=== PATIENT | female | born 1995 | race Caucasian/White ===

== ENCOUNTER → 2016-12-01 | Outpatient (CLI) | payer OTHER ==
[2016-12-01 13:49] LABS: ALBUMIN 3.8 GM/DL (3.2-5.2); ALBUMIN/GLOBULIN RATIO 1.09 (1.00-1.93); ALKALINE PHOSPHATASE 64 U/L (45-117); ALT/SGPT 19 U/L (12-78); ANION GAP 10 MEQ/L (8-16); AST/SGOT 10 U/L (15-37); BILIRUBIN,TOTAL 0.3 MG/DL (0.2-1.0); BLOOD UREA NITROGEN 13 MG/DL (7-18); CALCIUM LEVEL 9.4 MG/DL (8.5-10.1); CARBON DIOXIDE LEVEL 24 MEQ/L (21-32); CHLORIDE LEVEL 106 MEQ/L (98-107); CREATININE FOR GFR 0.69 MG/DL (0.55-1.02); GLOMERULAR FILTRATION RATE > 60.0 (>60); GLUCOSE, FASTING 94 MG/DL (70-105); POTASSIUM SERUM 4.6 MEQ/L (3.5-5.1); SODIUM LEVEL 140 MEQ/L (136-145); TOTAL PROTEIN 7.3 GM/DL (6.4-8.2)
== END ==
LOC: M WUC 10:58
PROVIDERS: ATTEND Nurse Practitioner Women's Health
DX: N92.1 Excessive and frequent menstruation with irregular cycle (principal); E66.8 Other obesity; Z68.38 Body mass index [BMI] 38.0-38.9, adult

== ENCOUNTER → 2017-06-17 | Outpatient (REF) | payer OTHER | LOC: M LAB REF 16:05 | PROVIDERS: ATTEND Physician Assistant | DX: R30.0 Dysuria (principal) ==

== ENCOUNTER → 2018-06-28 | Outpatient (CLI) | payer OTHER ==
[2018-06-28 10:23] LABS: ESTIMATED AVERAGE GLUCOSE 100 MG/DL (60-110); HEMOGLOBIN A1c 5.1 %
[2018-06-28 10:40] LABS: ALBUMIN 3.7 GM/DL (3.2-5.2); ALBUMIN/GLOBULIN RATIO 0.95 (1.00-1.93); ALKALINE PHOSPHATASE 73 U/L (45-117); ALT/SGPT 28 U/L (12-78); ANION GAP 8 MEQ/L (8-16); AST/SGOT 11 U/L (7-37); BILIRUBIN,TOTAL 0.3 MG/DL (0.2-1.0); BLOOD UREA NITROGEN 11 MG/DL (7-18); CARBON DIOXIDE LEVEL 25 MEQ/L (21-32); CHLORIDE LEVEL 108 MEQ/L (98-107); CHOLESTEROL LEVEL 209 MG/DL (<200); CHOLESTEROL RISK RATIO 3.073 (<5); CREATININE FOR GFR 0.76 MG/DL (0.55-1.30); GLOMERULAR FILTRATION RATE > 60.0 (>60); GLUCOSE, FASTING 86 MG/DL (70-100); HDL CHOLESTEROL 68 MG/DL (>40); LDL CHOLESTEROL 124 MG/DL (<100); NON-HDL-C 141 MG/DL; POTASSIUM SERUM 4.5 MEQ/L (3.5-5.1); SODIUM LEVEL 141 MEQ/L (136-145); TOTAL PROTEIN 7.6 GM/DL (6.4-8.2); TRIGLYCERIDES LEVEL 87 MG/DL (<150)
== END ==
LOC: M LAB 09:12
DX: E66.9 Obesity, unspecified (principal); Z83.3 Family history of diabetes mellitus

== ENCOUNTER → 2019-06-09 | Outpatient (REF) | payer OTHER ==
[2019-06-09 21:54] LABS: CHLAMYDIA DNA AMPLIFICATION NEGATIVE (NEGATIVE); GC DNA AMPLIFICATION NEGATIVE (NEGATIVE)
== END ==
LOC: M LAB REF 10:00
PROVIDERS: ATTEND Physician Assistant
DX: N30.01 Acute cystitis with hematuria (principal)

== ENCOUNTER → 2019-12-06 | Outpatient (CLI) | payer OTHER ==
[2019-12-06 15:24] LABS: FREE T4 1.36 NG/DL (0.76-1.46); THYROID STIMULATING HORMONE 1.9 uIU/ML (0.358-3.740)
[2019-12-06 15:33] LABS: PROLACTIN 12.4 NG/ML
[2019-12-09 00:08] LABS: DEHYDROEPIANDROSTERONE SULFATE 394.4 ug/dL (84.8-378.0); TESTOSTERONE FREE (DIRECT) 2.5 pg/mL (0.0-4.2)
== END ==
LOC: M LAB 14:10
PROVIDERS: ATTEND Nurse Practitioner Women's Health
DX: N92.6 Irregular menstruation, unspecified (principal)

== ENCOUNTER → 2020-01-16 | Outpatient (REF) | payer OTHER | LOC: M SFHCLERA 15:48 | PROVIDERS: ATTEND Physician Assistant | DX: R30.0 Dysuria (principal) ==

== ENCOUNTER → 2020-10-22 | Outpatient (REF) | payer BC | LOC: M SFHCWAGY 17:14 | PROVIDERS: ATTEND Advanced Practice Midwife | DX: Z12.4 Encounter for screening for malignant neoplasm of cervix (principal) ==

== ENCOUNTER → 2020-10-25 | Outpatient (CLI) | payer BC ==
[2020-10-25 10:30] LABS: THYROID STIMULATING HORMONE 1.99 uIU/ML (0.358-3.740)
[2020-10-25 11:26] LABS: FOLLICLE STIMULATING HORMONE 6.5 mIU/mL; LUTEINIZING HORMONE 4.8 mIU/mL
[2020-10-28 19:11] LABS: 17 HYDROXY PROGESTERONE 35 ng/dL (.); INSULIN LEVEL 18.8 uIU/mL (2.6-24.9); TESTOSTERONE FREE (DIRECT) 2.1 pg/mL (0.0-4.2)
== END ==
LOC: M WUC 08:19
PROVIDERS: ATTEND Advanced Practice Midwife
DX: N92.6 Irregular menstruation, unspecified (principal); L68.0 Hirsutism; R63.5 Abnormal weight gain

== ENCOUNTER → 2021-07-05 | Outpatient (REF) | payer BC ==
[2021-07-05 23:57] LABS: GC DNA AMPLIFICATION NEGATIVE (NEGATIVE)
== END ==
LOC: M LAB REF 21:14
PROVIDERS: ATTEND Physician Assistant
DX: R30.0 Dysuria (principal)

== ENCOUNTER → 2022-11-10 | Outpatient (REF) | payer BC | LOC: M SFHCWAGY 13:19 | PROVIDERS: ATTEND Advanced Practice Midwife | DX: Z12.4 Encounter for screening for malignant neoplasm of cervix (principal) ==

== ENCOUNTER → 2023-01-12 | Outpatient (CLI) | payer BC ==
[2023-01-12 17:33] LABS: BASO # 0.1 10^3/uL (0.0-0.2); BASO % 0.5 % (0.0-1.0); EOS # 0.4 10^3/uL (0.0-0.5); EOS % 3.9 % (0.0-3.0); HEMATOCRIT 39.1 % (36.0-47.0); LYMPH # 3.4 10^3/uL (1.5-5.0); LYMPH % 34.6 % (24.0-44.0); MEAN CORPUSCULAR HGB CONC 33.2 g/dl (32.0-36.5); MEAN CORPUSCULAR VOLUME 93.1 fl (80.0-96.0); MONO # 0.5 10^3/uL (0.0-0.8); MONO % 5.1 % (2.0-8.0); NEUTROPHILS # 5.4 10^3/uL (1.5-8.5); NEUTROPHILS % 55.7 % (36.0-66.0); PLATELET COUNT, AUTOMATED 426 10^3/uL (150-450); WHITE BLOOD COUNT 9.7 10^3/uL (4.0-10.0)
[2023-01-12 17:58] LABS: ALBUMIN 3.9 G/DL (3.2-5.2); ALKALINE PHOSPHATASE 66 U/L (46-116); ALT/SGPT 23 U/L (7.0-40); AST/SGOT 13 U/L (<34); BILIRUBIN,TOTAL 0.3 MG/DL (0.3-1.2); BLOOD UREA NITROGEN 15 MG/DL (9-23); CALCIUM LEVEL 9.3 MG/DL (8.5-10.1); CARBON DIOXIDE LEVEL 26 MMOL/L (20-31); CHLORIDE LEVEL 107 MMOL/L (98-107); CHOLESTEROL LEVEL 186 MG/DL (<200); CREATININE FOR GFR 0.68 MG/DL (0.55-1.30); GLOMERULAR FILTRATION RATE > 60.0 (>60); GLUCOSE, FASTING 102 MG/DL (60-100); HDL CHOLESTEROL 64.1 MG/DL (>40); LDL CHOLESTEROL 106.7 MG/DL (<100); NON-HDL-C 121.9 MG/DL; POTASSIUM SERUM 4.3 MMOL/L (3.5-5.1); SODIUM LEVEL 140 MMOL/L (136-145); TOTAL PROTEIN 7.1 G/DL (5.7-8.2); TRIGLYCERIDES LEVEL 76 MG/DL (<150)
[2023-01-12 17:59] LABS: FREE T4 1.17 NG/DL (0.89-1.76)
== END ==
LOC: M PLALAB 16:14
PROVIDERS: ATTEND Physician Assistant
DX: E78.00 Pure hypercholesterolemia, unspecified (principal); Z85.41 Personal history of malignant neoplasm of cervix uteri

== ENCOUNTER → 2023-02-04 | Outpatient (CLI) | payer BC | LOC: M WHC 08:36 | PROVIDERS: ATTEND Physician Assistant | DX: N92.1 Excessive and frequent menstruation with irregular cycle (principal); N83.201 Unspecified ovarian cyst, right side ==

== ENCOUNTER → 2023-08-05 | Outpatient (CLI) | payer BC ==
[2023-08-05 13:35] LABS: BASO # 0.1 10^3/uL (0.0-0.2); BASO % 0.7 % (0.0-1.0); EOS # 0.2 10^3/uL (0.0-0.5); EOS % 2.8 % (0.0-3.0); HEMOGLOBIN 13.1 g/dl (12.0-15.5); LYMPH # 1.8 10^3/uL (1.5-5.0); LYMPH % 26.6 % (24.0-44.0); MEAN CORPUSCULAR HEMOGLOBIN 30.4 pg (27.0-33.0); MEAN CORPUSCULAR HGB CONC 32.8 g/dl (32.0-36.5); MEAN CORPUSCULAR VOLUME 92.8 fl (80.0-96.0); MONO # 0.3 10^3/uL (0.0-0.8); NEUTROPHILS # 4.4 10^3/uL (1.5-8.5); NEUTROPHILS % 64.6 % (36.0-66.0); PLATELET COUNT, AUTOMATED 449 10^3/uL (150-450); RED BLOOD COUNT 4.31 10^6/uL (4.00-5.40); WHITE BLOOD COUNT 6.8 10^3/uL (4.0-10.0)
[2023-08-05 14:01] LABS: FREE T3 3.6 PG/ML (2.3-4.2); FREE T4 1.23 NG/DL (0.89-1.76)
[2023-08-05 14:02] LABS: FOLLICLE STIMULATING HORMONE 4.8 mIU/ML
[2023-08-05 14:04] LABS: ALBUMIN 4.1 G/DL (3.2-5.2); ALKALINE PHOSPHATASE 78 U/L (46-116); ALT/SGPT 39 U/L (7.0-40); AST/SGOT 14 U/L (<34); BILIRUBIN,TOTAL 0.3 MG/DL (0.3-1.2); BLOOD UREA NITROGEN 18 MG/DL (9-23); CALCIUM LEVEL 9.7 MG/DL (8.5-10.1); CARBON DIOXIDE LEVEL 25 MMOL/L (20-31); CHLORIDE LEVEL 106 MMOL/L (98-107); CHOLESTEROL LEVEL 198 MG/DL (<200); CHOLESTEROL RISK RATIO 3.08 (<5); CREATININE FOR GFR 0.65 MG/DL (0.55-1.30); GLOMERULAR FILTRATION RATE > 60.0 (>60); GLUCOSE, FASTING 102 MG/DL (60-100); HDL CHOLESTEROL 64.2 MG/DL (>40); LDL CHOLESTEROL 125.2 MG/DL (<100); NON-HDL-C 133.8 MG/DL; POTASSIUM SERUM 4.7 MMOL/L (3.5-5.1); SODIUM LEVEL 141 MMOL/L (136-145); TOTAL PROTEIN 7.3 G/DL (5.7-8.2); TRIGLYCERIDES LEVEL 43 MG/DL (<150)
[2023-08-05 14:05] LABS: TESTOSTERONE 23 NG/DL (14-76)
== END ==
LOC: M PLALAB 09:11
PROVIDERS: ATTEND Student in an Organized Health Care Education/Training Program
DX: N92.1 Excessive and frequent menstruation with irregular cycle (principal); E78.00 Pure hypercholesterolemia, unspecified

== ENCOUNTER → 2023-11-27 | Outpatient (REF) | payer BC | LOC: M SFHCWAGY 09:51 | PROVIDERS: ATTEND Advanced Practice Midwife | DX: Z12.4 Encounter for screening for malignant neoplasm of cervix (principal) ==

== ENCOUNTER → 2024-03-24 | Outpatient (CLI) | payer BC ==
[2024-03-24 14:46] LABS: HEMATOCRIT 37.5 % (36.0-47.0); HEMOGLOBIN 12.3 g/dl (12.0-15.5); MEAN CORPUSCULAR HGB CONC 32.8 g/dl (32.0-36.5); MEAN CORPUSCULAR VOLUME 91.5 fl (80.0-96.0); PLATELET COUNT, AUTOMATED 366 10^3/uL (150-450); WHITE BLOOD COUNT 8.7 10^3/uL (4.0-10.0)
[2024-03-24 15:43] LABS: HIV 1&2 SCREEN NEGATIVE (NEGATIVE)
[2024-03-24 15:45] LABS: GC DNA AMPLIFICATION NEGATIVE (NEGATIVE)
[2024-03-24 15:52] LABS: HEPATITIS C VIRUS ABY INDEX < 0.02 INDEX (<0.8)
== END ==
LOC: M PLALAB 10:49
PROVIDERS: ATTEND Advanced Practice Midwife
DX: O20.0 Threatened abortion (principal); Z3A.01 Less than 8 weeks gestation of pregnancy

== ENCOUNTER → 2024-04-25 | Outpatient (CLI) | payer BC | LOC: M PLALAB 13:22 | PROVIDERS: ATTEND Advanced Practice Midwife | DX: Z34.01 Encounter for supervision of normal first pregnancy, first trimester (principal) ==

== ENCOUNTER → 2024-05-25 | Outpatient (REF) | payer BC | LOC: M SFHCWAGY 17:03 | PROVIDERS: ATTEND Advanced Practice Midwife | DX: Z34.01 Encounter for supervision of normal first pregnancy, first trimester (principal); Z3A.15 15 weeks gestation of pregnancy ==

== ENCOUNTER → 2024-06-28 | Outpatient (CLI) | payer BC | LOC: M WHC 09:25 | PROVIDERS: ATTEND Advanced Practice Midwife | DX: Z36.89 Encounter for other specified antenatal screening (principal); Z3A.20 20 weeks gestation of pregnancy ==

== ENCOUNTER → 2024-08-01 | Outpatient (CLI) | payer BC | LOC: M WHC 07:25 | PROVIDERS: ATTEND Advanced Practice Midwife | DX: O99.212 Obesity complicating pregnancy, second trimester (principal); Z3A.25 25 weeks gestation of pregnancy ==

== ENCOUNTER → 2024-08-12 | Outpatient (CLI) | payer BC ==
[2024-08-12 14:27] LABS: GLUCOSE CHALLENGE TEST 1 HOUR 130 MG/DL (LESS THAN 140)
[2024-08-12 14:34] LABS: HEMATOCRIT 35.5 % (36.0-47.0); HEMOGLOBIN 11.8 g/dl (12.0-15.5); MEAN CORPUSCULAR HEMOGLOBIN 30.3 pg (27.0-33.0); MEAN CORPUSCULAR HGB CONC 33.2 g/dl (32.0-36.5); PLATELET COUNT, AUTOMATED 361 10^3/uL (150-450); WHITE BLOOD COUNT 9.4 10^3/uL (4.0-10.0)
[2024-08-12 15:01] LABS: HIV 1&2 SCREEN NEGATIVE (NEGATIVE)
[2024-08-12 15:09] LABS: HEPATITIS C VIRUS ABY INDEX < 0.02 INDEX (<0.8)
== END ==
LOC: M PLALAB 08:02
PROVIDERS: ATTEND Advanced Practice Midwife
DX: O99.212 Obesity complicating pregnancy, second trimester (principal); Z3A.00 Weeks of gestation of pregnancy not specified; E66.9 Obesity, unspecified

== ENCOUNTER → 2024-08-23 | Outpatient (CLI) | payer BC | LOC: M LAB 06:41 | PROVIDERS: ATTEND Advanced Practice Midwife | DX: O99.810 Abnormal glucose complicating pregnancy (principal); Z3A.00 Weeks of gestation of pregnancy not specified ==

== ENCOUNTER → 2024-10-12 | Outpatient (REF) | payer BC | LOC: M SFHCWAGY 17:02 | PROVIDERS: ATTEND Specialist | DX: N39.0 Urinary tract infection, site not specified (principal); O24.419 Gestational diabetes mellitus in pregnancy, unspecified control; O23.40 Unspecified infection of urinary tract in pregnancy, unspecified trimester ==

== ENCOUNTER → 2024-10-12 | Outpatient (CLI) | payer BC | LOC: M WHC 07:30 | PROVIDERS: ATTEND Advanced Practice Midwife | DX: O24.419 Gestational diabetes mellitus in pregnancy, unspecified control (principal); Z3A.35 35 weeks gestation of pregnancy ==

== ENCOUNTER → 2024-10-25 | Outpatient (CLI) | payer BC | LOC: M RAD 12:00 | PROVIDERS: ATTEND Nurse Practitioner Family | DX: O24.410 Gestational diabetes mellitus in pregnancy, diet controlled (principal); Z3A.37 37 weeks gestation of pregnancy ==

== ENCOUNTER 2024-11-03 11:07 | Inpatient (IN) | payer BC ==
[~2024-11-03] VITALS: Ht 167.6 cm; Wt 129.3 kg
[2024-11-03] VITALS (30 sets, daily range): BP systolic 120–165; BP diastolic 63–98
[2024-11-03] MEDS ORDERED: PRENTAB9 PO (11:25)
[2024-11-03] MEDS ORDERED: HOME MED LIST COMPLETE! XX SCH (12:10)
[2024-11-03 12:21] LABS: HEMATOCRIT 35.9 % (36.0-47.0); HEMOGLOBIN 12.2 g/dl (12.0-15.5); MEAN CORPUSCULAR VOLUME 88.2 fl (80.0-96.0); PLATELET COUNT, AUTOMATED 293 10^3/uL (150-450); RED BLOOD COUNT 4.07 10^6/uL (4.00-5.40); WHITE BLOOD COUNT 9.8 10^3/uL (4.0-10.0)
[2024-11-03] MEDS ORDERED: OXYTOCIN DRIP 30 UNITS in IV 1 EA IV PRN (12:30)
[2024-11-03] MEDS ORDERED: METHYLERGONOVINE MALEATE 0.2MG/ML 1ML VIAL IM PRN (12:30)
[2024-11-03] MEDS ORDERED: LIDOCAINE 1% MDV 20ML VIAL INFIL PRN (12:30)
[2024-11-03] MEDS ORDERED: TRANEXAMIC ACID INJection 1,000 MG in NS 100 ML IV PRN (12:30)
[2024-11-03] MEDS ORDERED: CARBOPROST TROMETHAMINE 250 MCG/ML AMP IM PRN (12:30)
[2024-11-03] MEDS: miSOPROStol 50MCG 1/2 TABLET PO SCH (12:44)
[2024-11-03 13:16] LABS: HIV 1&2 SCREEN NEGATIVE (NEGATIVE)
[2024-11-03 13:24] LABS: HEPATITIS C VIRUS ABY INDEX < 0.02 INDEX (<0.8)
[2024-11-03] MEDS: OXYTOCIN DRIP 30 UNITS in IV 1 EA IV SCH (17:16)
[2024-11-03] MEDS: LR 1,000 ML IV SCH (17:17)
[2024-11-03] MEDS ORDERED: ePHEDrine SULFATE 25 MG/5 ML(5MG/ML) SYRINGE IVP PRN (20:55)
[2024-11-03] MEDS ORDERED: NALOXONE INJ 0.4MG/1ML VIAL IV PRN (20:55)
[2024-11-03] MEDS ORDERED: EPIDURAL/PCA KEYS XX PRN (20:55)
[2024-11-03] MEDS ORDERED: ONDANSETRON 4MG 2ML VIAL IV PRN (20:55)
[2024-11-03] MEDS ORDERED: diphenhydrAMINE 50MG/ML VIAL IV PRN (20:55)
[2024-11-03] MEDS ORDERED: LR 500 ML IV PRN (20:55)
[2024-11-03] MEDS: FENTANYL/ROPIVACAINE/NACL BAG 100 ML EPIDURAL SCH (21:28)
[2024-11-04] VITALS (13 sets, daily range): BP systolic 122–155; BP diastolic 55–92; TEMP 98.4; O2SAT 96–97
[2024-11-04] MEDS ORDERED: RHOGAM 300MCG (1500IU) INJ IM SCH (07:00)
[2024-11-04] MEDS ORDERED: ACETAMINOPHEN 325 MG TAB PO PRN (07:00)
[2024-11-04] MEDS ORDERED: CALCIUM CARBONATE 500 MG CHEW U/D PO PRN (07:00)
[2024-11-04] MEDS ORDERED: METHYLERGONOVINE MALEATE 0.2 MG TAB PO PRN (07:00)
[2024-11-04] MEDS ORDERED: DOCUSATE SODIUM 100MG CAPSULE PO PRN (07:00)
[2024-11-04] MEDS ORDERED: MOM 30ML SUSPENSION UDC PO PRN (07:00)
[2024-11-04] MEDS ORDERED: ANUSOL HC CREAM 30GM TOP PRN (07:00)
[2024-11-04] MEDS: OXYTOCIN DRIP 30 UNITS in IV 1 EA IV SCH (07:00)
[2024-11-04] MEDS: IBUPROFEN 600MG TAB PO PRN (10:00)
[2024-11-04] MEDS: PRENATAL VITAMINS CHEWABLE TABLET PO SCH (10:00)
[2024-11-05 06:00] VITALS: BP 130/62; O2SAT 96
[2024-11-05] MEDS: ACETAMINOPHEN 500 MG TAB PO PRN (15:36)
[2024-11-05 18:00] VITALS: BP 128/69; O2SAT 98
[2024-11-05] MEDS: IBUPROFEN 800 MG TAB PO PRN (20:53)
[2024-11-06 06:00] VITALS: BP 132/65; O2SAT 98
[2024-11-06] MEDS: MEASLES,MUMPS,RUBELLA VACCINE INJ (MMR-II) SC.IMMUN ONE (08:08)
[2024-11-06] MEDS: DIBUCAINE 1% OINTMENT 30GM TOP PRN (09:14)
[2024-11-06] MEDS ORDERED: IBUP80TA PO (09:48)
[2024-11-06] MEDS ORDERED: ACET-683 PO (09:48)
== END 2024-11-06 13:24 | disposition home or self-care (01) | DRG 560 ==
LOC: M LDI 11:07 → M OBS 11-04 08:37
PROVIDERS: ADMIT Obstetrics & Gynecology; ATTEND Obstetrics & Gynecology
PROC: 10E0XZZ Delivery of Products of Conception, External Approach (ICD-10-PCS; principal; 2024-11-04)
PROC: 0KQM0ZZ Repair Perineum Muscle, Open Approach (ICD-10-PCS; 2024-11-04)
DX: O24.429 Gestational diabetes mellitus in childbirth, unspecified control (principal); O70.1 Second degree perineal laceration during delivery; Z37.0 Single live birth; Z3A.39 39 weeks gestation of pregnancy

== ENCOUNTER → 2025-06-20 | Outpatient (REF) | payer BC ==
[~2025-06-20] MED LIST: ACET-683 PO; IBUP80TA PO; PRENTAB9 PO
[2025-06-23 15:27] LABS: HPV APTIMA Not Detected (Not Detected)
== END ==
LOC: M SFHCWAGY 08:24
PROVIDERS: ATTEND Physician Assistant
DX: Z12.4 Encounter for screening for malignant neoplasm of cervix (principal); Z77.9 Other contact with and (suspected) exposures hazardous to health
CPT/HCPCS: 87624; G0123